=== PATIENT | female | born 1955 | race Caucasian/White ===

== ENCOUNTER 2022-07-28 13:16 | Emergency (ER) | payer OTHER, SELFPAY ==
--- NOTE | 2022-07-28 13:29 | DI.CT.S_ITS ---
PROCEDURE: CT HEAD/BRAIN WO CON INDICATIONS: fall, on blood thinners TECHNIQUE: Noncontrast 4.5 mm thick angled axial sections acquired from the foramen magnum to the vertex, with coronal and sagittal reformats. For radiation dose reduction, the following was used: automated exposure control, adjustment of mA and/or kV according to patient size. COMPARISON: None. FINDINGS: Image quality: Excellent. CSF spaces: Basal cisterns are patent. No extra-axial fluid collections. The ventricles are symmetric in size and shape. Brain: No intracranial bleeds or masses. There is cerebral volume loss for age, with resultant ventricular and sulcal prominence. There are periventricular and deep white matter chronic small vessel ischemic changes. There is intracranial internal carotid artery atherosclerosis. Skull and face: Calvarium and visualized facial bones appear intact, without suspicious lesions. Sinuses: Mucosal thickening in bilateral sphenoid sinuses are seen. Mucosal thickening in right ethmoid sinus is also noted.. IMPRESSION: 1. No CT evidence of acute intracranial abnormalities. 2. No acute skull fracture. 3. Bilateral sphenoid and right ethmoid sinusitis. Dictated by: Gadiel Combs M.D. on 07/28/2022 at 13:52 Approved by: Gadiel Combs M.D. on 07/28/2022 at 13:53
--- NOTE | 2022-07-28 13:29 | DI.CT.S_ITS ---
PROCEDURE: CT CERVICAL SPINE WO CON INDICATIONS: fall, on blood thinners TECHNIQUE: Noncontrast 3 mm thick sections acquired from the skull base to the T4 level. Sagittal and coronal reformats were then constructed. For radiation dose reduction, the following was used: automated exposure control, adjustment of mA and/or kV according to patient size. COMPARISON: None. FINDINGS: Image quality: Excellent. Bones: No fractures or dislocations. 2 mm anterolisthesis of C2 on C3 is seen. 3 mm anterolisthesis of C7 on T1 is also noted. Degenerative endplate changes are noted throughout cervical spine. No significant central canal stenosis or neural foraminal narrowing is seen. Visualized superior ribs are intact. Soft tissues: Prevertebral soft tissues are normal in thickness. No paravertebral hematomas. No apical pneumothoraces. IMPRESSION: 1. No acute cervical spine fracture or dislocation. 2. Degenerative disc disease throughout cervical spine with degenerative spondylolisthesis at C2-3 and C7-T1 levels as above. Dictated by: Gadiel Combs M.D. on 07/28/2022 at 13:53 Approved by: Gadiel Combs M.D. on 07/28/2022 at 13:54
--- NOTE | 2022-07-28 13:31 | ED.HEATRA ---
HPI - Head Injury <Filomena Palumbo, [facility] - Last Filed: 07/28/22 14:30> General Chief complaint: Fall Stated complaint: fell this morning and is taking blood thinners Time Seen by Provider: 07/28/22 13:20 History of Present Illness HPI Narrative: This is a 66-year-old female with history of 2 CVAs and a TIA most recently 3 months ago for which she was recently started on clopidogrel she presents to the emergency department today complaining of a fall this morning where she slipped out of bed due to a slippery floor striking her forehead on the floor. Denies LOC, denies nausea vomiting or altered mentation afterwards. States that she came in because she knew this is concerning for bleeding being on Plavix. She denies neck pain, shortness of breath, dizziness, states that her left eye has intermittent blurred vision. She denies any focal weakness, has been ambulatory since. States this happened at 06:00. Patient's states that her pupils were slightly unequal this morning afterwards and have since resolved. Related Data Home Medications Medication Instructions Recorded Confirmed amitriptyline 07/28/22 amoxicillin 875 mg-potassium 1 tab PO BID 07/28/22 07/28/22 clavulanate 125 mg tablet aripiprazole 5 mg tablet 5 mg PO DAILY 07/28/22 07/28/22 atorvastatin 40 mg tablet 40 mg PO DAILY 07/28/22 07/28/22 brimonidine 0.2 % eye drops 1 drp ophthalmic (eye) DAILY 07/28/22 07/28/22 bupropion HCl 300 mg 24 hr tablet, 300 mg PO QAM 07/28/22 07/28/22 extended release dorzolamide 22.3 mg-timolol 6.8 1 ml ophthalmic (eye) BID 07/28/22 07/28/22 mg/mL eye drops duloxetine 60 mg capsule,delayed 60 mg PO DAILY 07/28/22 07/28/22 release sprinkle fluticasone 250 mcg-salmeterol 50 1 inh inhalation BID 07/28/22 07/28/22 mcg/dose blistr powdr for inhalation fluticasone propionate 50 2 spray intranasal DAILY 07/28/22 07/28/22 mcg/actuation nasal spray,suspension (Allergy Relief (fluticasone)) latanoprost 0.005 % eye drops 1 drp EYE-BOTH BEDTIME 07/28/22 07/28/22 omeprazole 20 mg capsule,delayed 20 mg PO DAILY 07/28/22 07/28/22 release Previous Rx's Medication Instructions Recorded cetirizine 1 mg/mL oral solution 10 mg (10 mL) PO BID PRN allergy 07/28/22 symptoms #120 mL doxycycline hyclate 100 mg capsule 100 mg PO BID 7 days #14 caps 07/28/22 Allergies Allergy/AdvReac Type Severity Reaction Status Date / Time amlodipine Allergy Verified 07/28/22 14:00 cocaine Allergy Anaphylaxis Verified 07/28/22 14:00 cyclobenzaprine Allergy Hallucinati Verified 07/28/22 14:00 ng hydralazine Allergy Verified 07/28/22 14:00 Iodinated Contrast Media Allergy Anaphylaxis Verified 07/28/22 14:06 ketoprofen Allergy Verified 07/28/22 14:00 latex Allergy Rash Verified 07/28/22 14:00 losartan Allergy Verified 07/28/22 14:00 meperidine Allergy Rash Verified 07/28/22 14:00 morphine Allergy Verified 07/28/22 14:00 nitrofurantoin Allergy Verified 07/28/22 14:00 propoxyphene Allergy Nausea Verified 07/28/22 14:00 Quinolones Allergy Verified 07/28/22 14:00 shellfish derived Allergy Anaphylaxis Verified 07/28/22 14:00 Sulfa (Sulfonamide Allergy Verified 07/28/22 14:00 Antibiotics) tizanidine Allergy Verified 07/28/22 14:00 trazodone Allergy Muscle Pain Verified 07/28/22 14:00 codeine AdvReac Nausea Verified 07/28/22 14:00 hydrocodone AdvReac Nausea Verified 07/28/22 14:00 Review of Systems <EMEKA Tierney - Last Filed: 07/28/22 14:30> Review of Systems ROS Unobtainable: All systems reviewed & are unremarkable except as noted in HPI and below Patient History <EMEKA Tierney - Last Filed: 07/28/22 14:30> Social History Smoking Status: Never smoker Exam <EMEKA Tierney - Last Filed: 07/28/22 14:30> Narrative Exam Narrative: Reviewed vitals signs and nursing notes. General: Pleasant, sitting upright, in no acute distress, well groomed, afebrile HEENT: symmetrical facial expressions, moist mucous membranes, neck is supple, no C-spine tenderness to palpation, full range of motion, patient has a contusion to the center of her forehead, no fluctuance no palpable tenderness over her facial bones, nares are patent bilaterally, no periorbital ecchymosis or villegas sign CV: regular rate and rhythm, warm extremities Respiratory: normal work of breathing, without tachypnea or hypoxia. GI: abdomen soft, non-distended, without CVA tenderness bilaterally. MSK: moves all extremities, no weakness, normal tone, ambulatory without deficit Skin: Contusion to forehead as discussed above Neuro: clear speech and normal cognition, A&O x3, GCS 15, no focal motor or sensation deficits Initial Vital Signs Initial Vital Signs: Vital Signs Pulse Rate 101 H 07/28/22 13:32 Respiratory Rate 25 H 07/28/22 13:32 Pulse Oximetry 97 07/28/22 13:32 <Ken Boyce DO - Last Filed: 07/28/22 15:54> Initial Vital Signs Initial Vital Signs: Vital Signs Pulse Rate 101 H 07/28/22 13:32 Respiratory Rate 25 H 07/28/22 13:32 Pulse Oximetry 97 07/28/22 13:32 Scores <ADAM TierneyP - Last Filed: 07/28/22 14:30> Malaysian CT Head Rule Age <16 years old: No Patient on blood thinners: Yes Seizure after injury: No Exclusion: Patient meets exclusion criteria Nexus Score for C-Spine Focal Neurologic deficit present: No Midline spinal tenderness present: No Altered level of conciousness present: No Intoxication present: No Distracting Injury Present: No Nexus Criteria for C-spine: 0 <Ken Boyce DO - Last Filed: 07/28/22 15:54> Malaysian CT Head Rule Exclusion: Patient meets exclusion criteria Nexus Score for C-Spine Nexus Criteria for C-spine: 0 Course <EMEKA Tierney - Last Filed: 07/28/22 14:30> Orders Ordered: ED Orders 07/28/22 13:29 CT cervical spine wo con Stat CT head/brain wo con Stat Discontinued Medications Diphtheria/Tetanus/Acell Pertussis (Tet,Diph,Pertuss(Acell),Vac/Pf 0.5 Ml Syringe) 0.5 ml IM .ONCE ONE Stop: 07/28/22 13:35 Last Admin: 07/28/22 13:49 Dose: 0.5 ml Documented By: SAVANNAH Doxycycline Hyclate (Doxycycline Hyclate 100 Mg Tablet) 100 mg PO NOW ONE Stop: 07/28/22 14:13 Last Admin: 07/28/22 14:29 Dose: 100 mg Documented By: SAVANNAH Vital Signs Vital signs: Vital Signs - 8 hr 07/28/22 13:34 07/28/22 13:32 07/28/22 14:00 Temperature 97.4 F L Pulse Rate 108 H 101 H 98 H Respiratory Rate 22 25 H 24 Blood Pressure 142/88 H Pulse Oximetry 99 97 96 Oxygen Delivery Method Room Air 07/28/22 14:30 Temperature Pulse Rate 98 H Respiratory Rate 17 Blood Pressure 137/76 Pulse Oximetry 95 Oxygen Delivery Method <Ken Boyce DO - Last Filed: 07/28/22 15:54> Orders Ordered: ED Orders 07/28/22 13:29 CT cervical spine wo con Stat CT head/brain wo con Stat Discontinued Medications Diphtheria/Tetanus/Acell Pertussis (Tet,Diph,Pertuss(Acell),Vac/Pf 0.5 Ml Syringe) 0.5 ml IM .ONCE ONE Stop: 07/28/22 13:35 Last Admin: 07/28/22 13:49 Dose: 0.5 ml Documented By: SAVANNAH Doxycycline Hyclate (Doxycycline Hyclate 100 Mg Tablet) 100 mg PO NOW ONE Stop: 07/28/22 14:13 Last Admin: 07/28/22 14:29 Dose: 100 mg Documented By: SAVANNAH Vital Signs Vital signs: Vital Signs - 8 hr 07/28/22 13:34 07/28/22 13:32 07/28/22 14:00 Temperature 97.4 F L Pulse Rate 108 H 101 H 98 H Respiratory Rate 22 25 H 24 Blood Pressure 142/88 H Pulse Oximetry 99 97 96 Oxygen Delivery Method Room Air 07/28/22 14:30 Temperature Pulse Rate 98 H Respiratory Rate 17 Blood Pressure 137/76 Pulse Oximetry 95 Oxygen Delivery Method MDM - Head Injury <EMEKA Tierney - Last Filed: 07/28/22 14:30> Imaging Data CT scan - head: Radiologist's Impression: PROCEDURE:? CT HEAD/BRAIN WO CON ? INDICATIONS:? fall, on blood thinners ? TECHNIQUE:? Noncontrast 4.5 mm thick angled axial sections acquired from the foramen magnum to the vertex, with coronal and sagittal reformats.? For radiation dose reduction, the following was used:? automated exposure control, adjustment of mA and/or kV according to patient size.? ? COMPARISON:? None. ? FINDINGS:? Image quality:? Excellent.? ? CSF spaces:? Basal cisterns are patent.? No extra-axial fluid collections.? The ventricles are symmetric in size and shape.? ? Brain:? No intracranial bleeds or masses.? There is cerebral volume loss for age, with resultant ventricular and sulcal prominence.? There are periventricular and deep white matter chronic small vessel ischemic changes.? There is intracranial internal carotid artery atherosclerosis.? ? Skull and face:? Calvarium and visualized facial bones appear intact, without suspicious lesions.? ? Sinuses:? Mucosal thickening in bilateral sphenoid sinuses are seen.? Mucosal thickening in right ethmoid sinus is also noted..? ? IMPRESSION:? ? 1. No CT evidence of acute intracranial abnormalities. ? 2. No acute skull fracture. ? 3. Bilateral sphenoid and right ethmoid sinusitis. ? ? Dictated by: Gadiel Combs M.D. on 07/28/2022 at 13:52 ? ? Approved by: Gadiel Combs M.D. on 07/28/2022 at 13:53 ? CT - cervical spine: Radiologist's Impression: PROCEDURE:? CT CERVICAL SPINE WO CON ? INDICATIONS:? fall, on blood thinners ? TECHNIQUE:? Noncontrast 3 mm thick sections acquired from the skull base to the T4 level.? Sagittal and coronal reformats were then constructed.? For radiation dose reduction, the following was used:? automated exposure control, adjustment of mA and/or kV according to patient size.? ? COMPARISON:? None. ? FINDINGS:? Image quality:? Excellent.? ? Bones:? No fractures or dislocations.? 2 mm anterolisthesis of C2 on C3 is seen.? 3 mm anterolisthesis of C7 on T1 is also noted.? Degenerative endplate changes are noted throughout cervical spine.? No significant central canal stenosis or neural foraminal narrowing is seen.? Visualized superior ribs are intact.? ? Soft tissues:? Prevertebral soft tissues are normal in thickness.? No paravertebral hematomas.? No apical pneumothoraces.? ? ? IMPRESSION:? ? 1. No acute cervical spine fracture or dislocation. ? 2. Degenerative disc disease throughout cervical spine with degenerative spondylolisthesis at C2-3 and C7-T1 levels as above.? ? ? Dictated by: Gadiel Combs M.D. on 07/28/2022 at 13:53 ? ? Approved by: Gadiel Combs M.D. on 07/28/2022 at 13:54 ? MDM Narrative Medical decision making narrative: Chief Complaint: Head injury Multiple etiologies for patient's symptoms considered including, but not limited to: Traumatic brain injury, concussion, postconcussive syndrome, maxillofacial trauma, orbital trauma, scalp laceration, skull fracture, whiplash injury, cervical fracture, other cervical spine injury, contusion, intracranial hemorrhage, axonal injury, secondary sequelae of closed head injury,muscle strain I have independently reviewed the patient's vital signs and nursing notes as well as prior records if available. Pertinent records include: Recurs are in [facility] however patient was able to pull up her [employer] to access her medication and allergy list, and problem list. Pertinent Imaging reviewed: CT head and CT C-spine without acute intracranial or cervical spine abnormality. Utilized nexus C-spine and Malaysian CT rule and ruled in imaging due to anticoagulants and over 65 years GCS: 15 Course of care: Patient and her were greeted, she went to CT shortly after she arrived. She does not have any focal symptoms of her injury currently. Her vision is intact bilaterally, EOMI, symmetrical face expressions, her NIH is 0, equal strength in bilateral upper and lower extremities, able to puff out cheeks, she does have a small hematoma to the center of her forehead. No ptosis. She did not have any vomiting, cervical spine tenderness to palpation, and she endorsed that she is on Augmentin from a cat bite 3 days ago to her left lower leg. This does not show any erythema, discharge, or evidence of infection, appears to be healing well. She states that she was bit by a dog yesterday to the dorsum of her right wrist. She has 3 small puncture wounds there, no palpable foreign body. The wound site looks to be healing as expected but patient has erythema and edema extending to her knuckles and proximally up the dorsum of her arm. Please see photo attached, this is concerning for cellulitis, she is therapeutic on Augmentin and will add doxycycline today for additional coverage. She understands to follow-up with her primary care provider when she returns to [place]. She is in town visiting her grandchildren. She is without systemic symptoms of illness. They were given strict return precautions for any altered mental status, fever, weakness, paresthesia, incontinence, or pain out of proportion to return to the emergency department for another evaluation. They are not immunocompromised, or with active malignancy, or systemic signs of illness. Questions are addressed and there is agreement with the plan and for follow-up. Patient is appropriate for outpatient management. Social considerations that may affect disposition: none #[id number] - Emergency Medicine: Utilization of CT for Minor Blunt Head Trauma (Adult) Patient is 18 or older, presenting with minor blunt head trauma. Head CT (including cosigned orders) was ordered by an emergency intensive care ambulance paramedic for trauma because the patient: [ ] is vomiting\ severe/dangerous mechanism of injury was identified [ ] is experiencing a severe headache [ ] sustained loss of consciousness [ ] GCS less than 15 [ ] is experiencing amnesia of the event or focal neurologic deficit [ ] sustained injury above the clavicles [x] is suspected of taking anticoagulant medications [x ] is 65 years or older [ ] is intoxicated Patient has one or more of the following conditions that are excluded from the measure: [ ] Patient has ventricular shunt [ ] Patient has brain tumor [ ] Patient is [ ] Patient has multi-system trauma [ x] Patient taking an antiplatelet medication (excluding aspirin) Discharge Plan Departure Patient Disposition: Home Clinical Impression: Head injury due to trauma, History of CVA (cerebrovascular accident), 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 I am glad that you are okay. You may be more sore over the next 2 days and today. Please keep your activity level low without exerting herself for the next 1-2 days. Please stay hydrated, take Tylenol as needed for headache or feeling poorly. Please get plenty of rest. Take Zyrtec at night, may take Benadryl as needed. Please start this new antibiotic to prevent infection from this dog bite to your right hand. If this has worsening, or if you develop fever and chills, please come back to the emergency department. It may take at least 24 hours for this to improve to your right hand. I wish you a good weekend and know that we will be here if you have any worsening symptoms, please return. *What to do: *Please continue to take your regular medications as directed. [x ] New medication prescriptions sent to your pharmacy: [ [facility]] [ ] New medication written as a paper prescription [ ] No new medications given *Please call and schedule follow up with your primary care provider in 2-3 days, at least for an update. Let them know you were seen in the Emergency Department for the above problem. We will electronically transmit a record of today's note if your PCP or specialist is in our system. *If you do not have a primary care provider please contact [phone] to establish care with one of the [facility] primary care providers. *Return to the Emergency Department for worsening symptoms, inability to keep liquids down, fever greater than 101F, chills, or other concerning symptom. Prescriptions: New doxycycline hyclate 100 mg capsule 100 mg PO BID 7 Days Qty: 14 0RF cetirizine 1 mg/mL solution 10 mg PO BID PRN (Reason: allergy symptoms) Qty: 120 0RF No Action latanoprost 0.005 % drops 1 drp EYE-BOTH BEDTIME Patient Comments: INSTILL 1 DROP INTO BOTH EYES EVERY EVENING AT BEDTIME atorvastatin 40 mg Tablet 40 mg PO DAILY fluticasone propion-salmeterol 250-50 mcg/dose Blister With Device 1 inh INHALATION BID brimonidine 0.2 % Drops 1 drp OPHTHALMIC (EYE) DAILY omeprazole 20 mg Capsule,Delayed Release(Dr/Ec) 20 mg PO DAILY dorzolamide-timolol 22.3-6.8 mg/mL Drops 1 ml OPHTHALMIC (EYE) BID fluticasone propionate [Allergy Relief (fluticasone)] 50 mcg/actuation [place],Suspension 2 spray INTRANASAL DAILY Rx Instructions: administer into each nostril amoxicillin-pot clavulanate [Augmentin] 875-125 mg Tablet 1 tab PO BID aripiprazole 5 mg Tablet 5 mg PO DAILY bupropion HCl 300 mg Tablet Extended Release 24 Hr 300 mg PO QAM duloxetine 60 mg Capsule, Delayed Rel Sprinkle 60 mg PO DAILY amitriptyline Stand Alone Forms: Patient Portal/API <Ken Boyce DO - Last Filed: 07/28/22 15:54> Cosign ED Attending Octavioature Attestation: I was immediately available in the department for consultation. Documentation has been reviewed. I agree with assessment and plan.
[2022-07-28 13:32] VITALS: PULSE 101; RESP 25; O2SAT 97
[2022-07-28 13:34] VITALS: BP 142/88; PULSE 108; RESP 22; TEMP 36.3; O2SAT 99; BMI 35.6
[2022-07-28] MEDS: TET,DIPH,PERTUSS(ACELL),VAC/PF 0.5 ML SYRINGE IM (13:49)
[2022-07-28 14:00] VITALS: PULSE 98; RESP 24; O2SAT 96
[2022-07-28] MEDS: DOXYCYCLINE HYCLATE 100 MG TABLET PO (14:29)
[2022-07-28 14:30] VITALS: BP 137/76; PULSE 98; RESP 17; O2SAT 95
--- NOTE | 2022-07-28 14:36 | PC.NURSE ---
Bruise to midline forehead.
== END 2022-07-28 14:50 | disposition home or self-care (01) ==
PROVIDERS: Emergency Provider Emergency Medicine
DX: S09.8XXA Other specified injuries of head, initial encounter (principal); Z86.73 Personal history of transient ischemic attack (TIA), and cerebral infarction without residual deficits; Z79.02 Long term (current) use of antithrombotics/antiplatelets; Z23 Encounter for immunization; W06.XXXA Fall from bed, initial encounter
CPT/HCPCS: 70450; 72125; 90471; 99284; 90715